=== PATIENT | male | born 2000 | race African-American/Black ===

== ENCOUNTER → 2023-09-09 | Outpatient (CLI) | payer BC ==
[2023-09-09 15:22] LABS: Basophils # (A) 0.03 X 10*3/uL (0.00-0.10); Basophils % (A) 0.4 %; Eosinophils # (A) 0.21 X 10*3/uL (0.04-0.35); HCT 46.3 % (39.6-50.0); HGB 14.9 g/dL (13.0-17.0); Lymphocytes # (A) 3.25 X 10*3/uL (0.90-5.00); Lymphocytes % (A) 47.1 %; MCHC 32.2 g/dL (32.0-37.0); MCV 86.9 FL (80.0-97.0); Mean Platelet Volume 10.4 FL (9.5-12.2); Monocytes % (A) 5.8 %; NRBC Per 100 WBC 0 X 10*3/uL (0.00-0.01); Neutrophils % (A) 43.6 %; Platelet Count 254 X 10*3/uL (140-440); RBC 5.33 X 10*6/uL (4.40-5.60); RDW 13.2 % (11.5-14.5)
== END | disposition home or self-care (01) ==
LOC: LABPAT 08:17
PROVIDERS: ATTEND Surgery
DX: Z01.812 Encounter for preprocedural laboratory examination (principal); K40.90 Unilateral inguinal hernia, without obstruction or gangrene, not specified as recurrent; F17.200 Nicotine dependence, unspecified, uncomplicated; D64.9 Anemia, unspecified; R94.31 Abnormal electrocardiogram [ECG] [EKG]
CPT/HCPCS: 36415; 85025; 86850; 86900; 86901; 93005

== ENCOUNTER 2023-09-13 10:31 | Day surgery (SDC) | payer BC ==
[2023-09-10 10:53] VITALS: BMI 31.6
--- NOTE | 2023-09-13 07:38 | P.GSHP ---
History of Present Illness H&P Date: 09/13/23 Chief Complaint: Left inguinal hernia 23-year-old male presents with complaints of bulge left groin. Increasing in size over the last 6 years. Increased pain as well. Sometimes has discomfort on the right side. No bulge on the right side. Past Medical History Past Medical History: Asthma Additional Past Medical History / Comment(s): left inguinal hernia,asthma due to pet allergies History of Any Multi-Drug Resistant Organisms: None Reported Past Surgical History: No Surgical Hx Reported Past Anesthesia/Blood Transfusion Reactions: No Reported Reaction, Family History of Problems w/ Anesthesia Additional Past Anesthesia/Blood Transfusion Reaction / Comment(s): no hx of anesthesia or blood transfusion. takes mom awhile to wake up with anesthesia Smoking Status: Never smoker - Past Family History Mother Family Medical History: No Reported History Medications and Allergies Home Medications Medication Instructions Recorded Confirmed Type No Known Home Medications 05/18/15 09/10/23 History Allergies Allergy/AdvReac Type Severity Reaction Status Date / Time green apples Allergy Rash/Hives Uncoded 09/10/23 10:34 Surgical - Exam Physical exam: General: Well-developed, well-nourished HEENT: Normocephalic, sclerae nonicteric Abdomen: Nontender, nondistended, reducible left inguinal hernia Extremities: No edema Neuro: Alert and oriented Assessment and Plan (1) Left inguinal hernia Narrative/Plan: 62-year-old male with symptomatic left inguinal hernia. Will proceed with laparoscopic da Jen assisted repair left inguinal hernia with mesh, possible open, possible bilateral. Risks of bleeding, infection, recurrence, bladder and bowel injury, numbness, nerve injury, conversion to an open procedure were discussed with the patient. The patient understands and wishes to proceed. Status: Acute Code(s): K40.90 - UNIL INGUINAL HERNIA, W/O OBST OR GANGR, NOT SPCF RECUR SNOMED Code(s): 474189030
[2023-09-13] MEDS ORDERED: ACETAMINOPHEN TAB 500 MG TAB ONE (11:21)
[2023-09-13] MEDS ORDERED: LACTATED RINGERS 1,000 ML IV ONE ×2 (11:28→14:02)
[2023-09-13] MEDS ORDERED: HEPARIN SODIUM,PORCINE 5,000 UNIT/ML 1 ML VIAL SQ ONE (11:30)
[2023-09-13] MEDS ORDERED: SUCCINYLCHOLINE CHLORIDE 200 MG/10 ML VIAL IV ONE (11:59)
[2023-09-13] MEDS ORDERED: NEOSTIGMINE 1 MG/ML 10 ML VIAL ONE (11:59)
[2023-09-13] MEDS ORDERED: ROCURONIUM 10 MG/ML (5 ML VIAL) IV ONE (11:59)
[2023-09-13] MEDS ORDERED: HYDROmorphone (PF) 1 MG/ML ONE (11:59)
[2023-09-13] MEDS ORDERED: PROPOFOL 10 MG/ML 20 ML VIAL IV ONE (11:59)
[2023-09-13] MEDS ORDERED: MIDAZOLAM 2 MG/2 ML VIAL ONE (11:59)
[2023-09-13] MEDS ORDERED: fentaNYL (PF) 50 MCG/ML 2 ML AMP ONE (11:59)
[2023-09-13] MEDS ORDERED: LIDOCAINE 1% INJ 10MG/ML (20 ML MDV) ONE (11:59)
[2023-09-13] MEDS ORDERED: GLYCOPYRROLATE 0.2 MG/ML 2 ML VIAL ONE (11:59)
[2023-09-13] MEDS ORDERED: BUPIVACAINE (PF) 0.25% 30 ML VIAL SQ ONE (12:02)
[2023-09-13] MEDS ORDERED: ceFAZolin 1,000 MG VIAL IVPB ONE (12:02)
--- NOTE | 2023-09-13 14:17 | P.OP ---
Date of Procedure: 09/13/23 Procedure(s) Performed: PREOPERATIVE DIAGNOSIS: Left inguinal hernia POSTOPERATIVE DIAGNOSIS: Large indirect left inguinal hernia PROCEDURE: Laparoscopic da Jen assisted repair left inguinal hernia with mesh SURGEON: Dr. Mandel ANESTHESIA: General OPERATIVE PROCEDURE DETAILS: Patient was placed in the operating table in the supine position. The patient was placed under general anesthesia. The abdomen was prepped and draped in usual sterile fashion. A small curvilinear supraumbilical incision was made. The fascia was retracted anteriorly with Sumeet forceps. The Veress needle was inserted. The saline drop test was normal. Insufflation took place to 15 mmHg. An 8 mm trocar was placed into the peritoneal cavity. 2 additional 8 mm trochars were placed in the right upper quadrant and left upper quadrant under visualization. The robotic arms were then brought in and docked into place. The fenestrated bipolar was used in the left arm and the laparoscopic gurmeet was utilized in the right arm. A 30 8 mm scope was used in the up position. The peritoneal cavity was inspected. The patient had a large indirect hernia on the left-hand side. This was containing omentum. Omentum was able to be reduced but I was impressed with how much omentum was present within the hernia sac. No hernia on the right was seen. The peritoneum was incised in a horizontal fashion cephalad to the internal inguinal ring. Following that careful dissection of the preperitoneal space took place. This took place using both electrocautery, sharp dissection but primarily blunt dissection. Visualization of the pubic tubercle and Ochoa's ligament took place medially. Full dissection took place laterally as well. The hernia sac was fully dissected. As we were dissecting the hernia sac out the testicle and spermatic cord structures were pulled up into the preperitoneal space. After the surgery the patient's mother stated that he had an undescended testicle as an infant. The testicle was able to be reduced back into the scrotal sac. This was checked at the completion of the procedure and although the testicle was slightly high riding it was still present in the scrotum. Once we had adequate space the [id number] Progrip mesh was advanced into the preperitoneal space and flattened out appropriately to cover all potential hernia sites. This was sutured to the Ochoa's ligament using a running absorbable 3 OV lock suture.. The peritoneal defect was then closed using a absorbable 2-0 VLok suture. The large hernia sac was incorporated into the peritoneal closure to help prevent future recurrence. The pneumoperitoneum was then evacuated. The skin of all 3 sites was closed using a 4-0 Monocryl stitch. Skin glue was then applied. TYPE OF MESH USED: ProGrip LOCATION OF MESH: Preperitoneal FIXATION: Absorbable 3 OV lock PREOPERATIVE DISCUSSION ON SMOKING CESSASTION: Yes PREOPERATIVE DISCUSSION ON MORBID OBESITY: Yes PREOPERATIVE DISCUSSION ON APPROPRIATE USE OF NARCOTIC USE: Yes PREOPERATIVE EDUCATION: Multi Modal, Smoking Cessation and Weight Loss with BMI over 35. DISPOSITION: Stable to recovery room
[2023-09-13 14:48] VITALS: RESP 16; TEMP 97.9
[2023-09-13] MEDS ORDERED: HYDROmorphone 0.5 MG/0.5 ML SYRINGE IVP ONE (14:49)
[2023-09-13 16:11] VITALS: PULSE 72
[2023-09-13 17:30] VITALS: BP 118/80
[2023-09-13] MEDS ORDERED: ACETAMINOPHEN TAB 325 MG TAB PO SCH (18:00)
[2023-09-13] MEDS ORDERED: IBUPROFEN 600 MG TAB PO SCH (21:00)
== END 2023-09-13 17:48 | disposition home or self-care (01) ==
LOC: OR 10:31
PROVIDERS: ATTEND Surgery
DX: K40.90 Unilateral inguinal hernia, without obstruction or gangrene, not specified as recurrent (principal); J45.909 Unspecified asthma, uncomplicated
CPT/HCPCS: 49650; C1781; J2250; J0330; J1644; J2710; J0690; J2001; J3010; J1170 ×2; J2704; J0665

== ENCOUNTER 2023-09-18 05:38 | Emergency (ER) | payer BC ==
[2023-09-18 05:51] VITALS: BP 157/96; PULSE 65; RESP 18; TEMP 98.8
--- NOTE | 2023-09-18 06:04 | XR ---
EXAMINATION TYPE: XR chest 2V DATE OF EXAM: 09/18/2023 COMPARISON: NONE HISTORY: Chest pain TECHNIQUE: Frontal and lateral views of the chest are obtained. FINDINGS: There is no focal air space opacity, pleural effusion, or pneumothorax seen. The cardiac silhouette size is within normal limits. The osseous structures are intact. IMPRESSION: No acute process.
--- NOTE | 2023-09-18 06:13 | ED ---
Arrhythmia/Palpitations HPI - General Chief Complaint: Arrhythmia/Palpitations Stated Complaint: Heart palpitations Time Seen by Provider: 09/18/23 06:11 Source: patient, RN notes reviewed Mode of arrival: ambulatory Limitations: no limitations - History of Present Illness Initial Comments: This is a 23 year old male who presents to the emergency department for palpitations. States that he woke up around 3:30am with palpitations and feelings of nausea. Denies any associated chest pain or shortness of breath. States that he can feel his heart fluttering and his heart beat feels irregular. Denies any hx of similar symptoms in the past. Since 3:30 symptoms have been occurring intermittently. - Related Data Previous Rx's Medication Instructions Recorded oxyCODONE HCL [OxyIR] 5 mg PO Q6H PRN 3 Days #6 tab 09/13/23 Allergies Allergy/AdvReac Type Severity Reaction Status Date / Time green apples Allergy Rash/Hives Uncoded 09/13/23 10:56 Review of Systems ROS Statement: Those systems with pertinent positive or pertinent negative responses have been documented in the HPI. ROS Other: All systems not noted in ROS Statement are negative. Past Medical History Past Medical History: Asthma Additional Past Medical History / Comment(s): left inguinal hernia,asthma due to pet allergies History of Any Multi-Drug Resistant Organisms: None Reported Past Surgical History: No Surgical Hx Reported Past Anesthesia/Blood Transfusion Reactions: No Reported Reaction, Family History of Problems w/ Anesthesia Additional Past Anesthesia/Blood Transfusion Reaction / Comment(s): no hx of anesthesia or blood transfusion. takes mom awhile to wake up with anesthesia Past Psychological History: No Psychological Hx Reported Smoking Status: Never smoker - Past Family History Mother Family Medical History: No Reported History General Exam Limitations: no limitations Course Vital Signs 09/18/23 05:40 Temperature 98.8 F Pulse Rate 65 Respiratory 18 Rate Blood Pressure 157/96 O2 Sat by Pulse 98 Oximetry Medical Decision Making - Medical Decision Making I performed the QuickNote portion of this chart. Signed Olga Calderon PA-C. Patient left AMA from the waiting room prior to full evaluation as well as completion and review of ordered testing. Disposition Clinical Impression: Palpitations Disposition: LEFT AGAINST MEDICAL ADVICE Referrals: Sammy Sanders DO [Primary Care Provider] - 1-2 days
== END 2023-09-18 06:20 | disposition left against medical advice (07) ==
LOC: EC 05:38
DX: R00.2 Palpitations (principal); J45.909 Unspecified asthma, uncomplicated; Z91.018 Allergy to other foods; Z53.29 Procedure and treatment not carried out because of patient's decision for other reasons
CPT/HCPCS: 71046; 93005; 99284